=== PATIENT | female | born 1960 | race Caucasian/White ===

== ENCOUNTER 2019-07-17 21:25 | Emergency (ER) | payer OTHER ==
[~2019-07-17] VITALS: Ht 152.4 cm; Wt 50.0 kg
[~2019-07-17 21:25] MED LIST: [UNRECOGNIZED DRUG - OTHER]
[2019-07-17] MEDS ORDERED: ONDANSETRON HCL 4MG/2ML INJ IV STA (22:26)
[2019-07-17] MEDS ORDERED: SODIUM CHLORIDE 0.9% 1,000 ML IV ONE (22:26)
[2019-07-17] MEDS ORDERED: KETOROLAC 30MG/ML VIAL IV STA (22:26)
[2019-07-17 23:35] LABS: CLARITY URINE CLEAR (CLEAR); COLOR URINE YELLOW (YELLOW); KETONES URINE NEGATIVE (NEGATIVE); LEUKOCYTE ESTERASE URINE TRACE (NEGATIVE); NITRITE URINE NEGATIVE (NEGATIVE); OCCULT BLOOD URINE 2+ (NEGATIVE); PH URINE 5.5 (4.5-8.0); PROTEIN URINE NEGATIVE (NEGATIVE); SPECIFIC GRAVITY URINE 1.012 (1.005-1.030); UROBILINOGEN URINE 0.2 E.U./dL (0.2-1.0)
[2019-07-17 23:39] LABS: CHLORIDE 107 mEq/L (98-107)
[2019-07-17 23:40] LABS: BASOPHILS % 0.4 % (0.0-2.0); EOSINOPHILS % 0.2 % (0.0-5.0); HEMATOCRIT. 38.4 % (36.0-48.0); HEMOGLOBIN. 12.9 g/dL (12.0-16.0); LYMPHOCYTES % 8.1 % (20.0-50.0); MEAN CORPUSCULAR HEMOGLOBIN 28.8 pg (28.0-32.0); MEAN CORPUSCULAR VOLUME 85.8 fL (81.0-99.0); MEAN PLATELET VOLUME 9.2 fl (7.4-10.4); MONOCYTES % 4.8 % (2.0-8.0); NEUTROPHILS % 86.5 % (40.0-76.0); PLATELET 253 x1000/uL (130-400); RED BLOOD CELL COUNT 4.47 mill/uL (4.2-5.4); RED CELL DISTRIBUTION WIDTH 13.6 % (11.6-14.6)
[2019-07-18] MEDS ORDERED: MORPHINE SULFATE 4 MG/ML CPJ (NOT FOR IM USE) IV ONE (01:00)
[2019-07-18 01:41] VITALS: BP 143/86
== END 2019-07-18 01:43 | disposition home or self-care (01) ==
LOC: ER 21:25
DX: R10.84 Generalized abdominal pain (principal)
CPT/HCPCS: 36415; 74021; 80053; 81003; 83690; 85025; 96361; 96374; 96375; 99284; J1885; J2270; J2405; J7030

== ENCOUNTER 2020-08-18 18:25 | Inpatient (IN) | payer MEDICAID, OTHER ==
[~2020-08-18] VITALS: Ht 157.5 cm; Wt 59.0 kg
[2020-08-18 19:12] LABS: BASOPHILS % 0.5 % (0.0-2.0); HEMOGLOBIN. 10.2 g/dL (12.0-16.0); LYMPHOCYTES % 14.3 % (20.0-50.0); MEAN CORPUSCULAR HEMOGLOBIN 28.9 pg (28.0-32.0); MEAN CORPUSCULAR VOLUME 84.9 fL (81.0-99.0); MEAN PLATELET VOLUME 8.2 fl (7.4-10.4); MONOCYTES % 6.8 % (2.0-8.0); NEUTROPHILS % 78.4 % (40.0-76.0); PLATELET 299 x1000/uL (130-400); RED BLOOD CELL COUNT 3.54 mill/uL (4.2-5.4); RED CELL DISTRIBUTION WIDTH 13.8 % (11.6-14.6)
[2020-08-18 19:19] LABS: CHLORIDE 99 mEq/L (98-107)
[2020-08-18] MEDS ORDERED: KCL 20MEQ/100ML PREMIX 100 ML IV ONE (19:45)
[2020-08-18] MEDS ORDERED: POTASSIUM BICARB/CIT ACID 25 MEQ TABLET.EFF PO ONE (19:45)
[2020-08-18] MEDS ORDERED: DEXAMETHASONE 10 MG/ML VIAL IV ONE (21:30)
[2020-08-18] MEDS ORDERED: SODIUM CHLORIDE 0.9% 500 ML IV ONE (21:30)
[2020-08-18] MEDS ORDERED: AZITHROMYCIN 500 MG TABLET PO ONE (21:30)
[2020-08-19] MEDS ORDERED: LORAZEPAM 2MG/ML CPJ IV PRN (04:30)
[2020-08-19] MEDS ORDERED: AZITHROMYCIN 500 MG in DEXT 5% WATER 250 ML IV SCH (04:30)
[2020-08-19] MEDS ORDERED: CEFTRIAXONE 1 G PREMIX 50 ML IV SCH (04:30)
[2020-08-19] MEDS ORDERED: MAGNESIUM/ALUMINUM HYDROXIDE/SIMETHICONE 30ML UDC PO PRN (04:30)
[2020-08-19] MEDS ORDERED: DOCUSATE SODIUM 100MG CAPSULE PO PRN (04:30)
[2020-08-19] MEDS ORDERED: CLONIDINE 0.1MG TABLET PO PRN (04:30)
[2020-08-19] MEDS ORDERED: KCL 10MEQ/50ML PREMIX 50 ML IV SCH (05:00)
[2020-08-19] MEDS: ENOXAPARIN 40MG/0.4ML SYR SUBCUT SCH (08:46)
[2020-08-19] MEDS: ACETAMINOPHEN 325MG TABLET PO PRN ×2 (09:53→17:52)
[2020-08-19 10:45] VITALS: BP 110/74
[2020-08-19] MEDS ORDERED: AMLO10TA80 PO (11:46)
[2020-08-19] MEDS ORDERED: FAMO-133 PO (11:46)
[2020-08-19] MEDS ORDERED: ASPI-1406 PO (11:46)
[2020-08-19 12:00] VITALS: BP 106/62
[2020-08-19 15:10] LABS: CHLORIDE 106 mEq/L (98-107)
[2020-08-19 16:00] VITALS: BP 109/62
[2020-08-19 20:00] VITALS: BP 118/67
[2020-08-19] MEDS: ONDANSETRON HCL 4MG/2ML INJ IV PRN (22:30)
[2020-08-19] MEDS: GUAIFENESIN 200MG/10ML SUGAR FREE UDC PO PRN (22:30)
[2020-08-20] VITALS: BP 107/59
[2020-08-20] MEDS: ACETAMINOPHEN 325MG TABLET PO PRN ×2 (00:06→13:11)
[2020-08-20 04:00] VITALS: BP 105/60
[2020-08-20] MEDS: GUAIFENESIN 200MG/10ML SUGAR FREE UDC PO PRN (05:00)
[2020-08-20] MEDS ORDERED: CEFTRIAXONE 1 G PREMIX 50 ML IV SCH (07:00)
[2020-08-20] MEDS: ONDANSETRON HCL 4MG/2ML INJ IV PRN (07:05)
[2020-08-20 08:04] LABS: BASOPHILS % 0.1 % (0.0-2.0); HEMATOCRIT. 27.4 % (36.0-48.0); HEMOGLOBIN. 9.4 g/dL (12.0-16.0); LYMPHOCYTES % 9.4 % (20.0-50.0); MEAN CORPUSCULAR VOLUME 84.8 fL (81.0-99.0); MEAN PLATELET VOLUME 8.5 fl (7.4-10.4); MONOCYTES % 7.1 % (2.0-8.0); NEUTROPHILS % 83.4 % (40.0-76.0); PLATELET 319 x1000/uL (130-400); RED BLOOD CELL COUNT 3.24 mill/uL (4.2-5.4); RED CELL DISTRIBUTION WIDTH 13.9 % (11.6-14.6)
[2020-08-20 08:20] LABS: CHLORIDE 107 mEq/L (98-107)
[2020-08-20] MEDS: AZITHROMYCIN 500 MG in DEXT 5% WATER 250 ML IV SCH (09:11)
[2020-08-20] MEDS: ENOXAPARIN 40MG/0.4ML SYR SUBCUT SCH (09:12)
[2020-08-20 12:00] VITALS: BP 102/62
[2020-08-20] MEDS: DEXAMETHASONE 4MG/ML 1ML VIAL IV SCH (12:16)
[2020-08-20] MEDS: CEFTRIAXONE 1,000 MG in DEXTROSE 5% WATER 50 ML IV SCH (14:30)
[2020-08-20 16:00] VITALS: BP 105/62
[2020-08-20 20:00] VITALS: BP 105/62
[2020-08-21] MEDS: AZITHROMYCIN 500 MG in DEXT 5% WATER 250 ML IV SCH (06:41)
[2020-08-21 08:00] VITALS: BP 104/52
[2020-08-21] MEDS: ENOXAPARIN 40MG/0.4ML SYR SUBCUT SCH (08:13)
[2020-08-21] MEDS: DEXAMETHASONE 4MG/ML 1ML VIAL IV SCH (08:13)
[2020-08-21 12:00] VITALS: BP 116/57
[2020-08-21] MEDS: CEFTRIAXONE 1,000 MG in DEXTROSE 5% WATER 50 ML IV SCH (13:14)
[2020-08-21 16:00] VITALS: BP 110/60
[2020-08-21 20:00] VITALS: BP 120/62
[2020-08-21] MEDS: ACETAMINOPHEN 325MG TABLET PO PRN (23:37)
[2020-08-22] VITALS: BP_SYST 116; BP_SYST 141; BP_DIAS 74; BP_DIAS 78
[2020-08-22 04:00] VITALS: BP 120/63
[2020-08-22 08:00] VITALS: BP 119/62
[2020-08-22] MEDS: ENOXAPARIN 40MG/0.4ML SYR SUBCUT SCH (09:17)
[2020-08-22] MEDS: AZITHROMYCIN 500 MG TABLET PO SCH (09:17)
[2020-08-22] MEDS: DEXAMETHASONE 4MG/ML 1ML VIAL IV SCH (09:17)
[2020-08-22 12:00] VITALS: BP 117/63
[2020-08-22] MEDS: CEFTRIAXONE 1,000 MG in DEXTROSE 5% WATER 50 ML IV SCH (12:47)
[2020-08-22 16:00] VITALS: BP 135/73
[2020-08-22 20:00] VITALS: BP 136/70
[2020-08-22] MEDS: ACETAMINOPHEN 325MG TABLET PO PRN (22:12)
[2020-08-23 00:35] VITALS: BP 121/58
[2020-08-23 05:45] VITALS: BP 128/62
[2020-08-23 08:00] VITALS: BP 121/61
[2020-08-23] MEDS: ENOXAPARIN 40MG/0.4ML SYR SUBCUT SCH (09:46)
[2020-08-23] MEDS: DEXAMETHASONE 4MG/ML 1ML VIAL IV SCH (09:47)
[2020-08-23] MEDS: AZITHROMYCIN 500 MG TABLET PO SCH (09:47)
[2020-08-23 12:00] VITALS: BP 118/62
[2020-08-23] MEDS: CEFTRIAXONE 1,000 MG in DEXTROSE 5% WATER 50 ML IV SCH (12:40)
[2020-08-23 16:00] VITALS: BP 130/71
[2020-08-23 20:00] VITALS: BP 122/66
[2020-08-24] VITALS: BP 135/65
[2020-08-24 04:00] VITALS: BP 124/62
[2020-08-24 08:00] VITALS: BP 122/72
[2020-08-24] MEDS: AZITHROMYCIN 500 MG TABLET PO SCH (09:39)
[2020-08-24] MEDS: ENOXAPARIN 40MG/0.4ML SYR SUBCUT SCH (09:39)
[2020-08-24] MEDS: DEXAMETHASONE 4MG/ML 1ML VIAL IV SCH (09:39)
[2020-08-24 12:00] VITALS: BP 121/64
[2020-08-24] MEDS: CEFTRIAXONE 1,000 MG in DEXTROSE 5% WATER 50 ML IV SCH (12:42)
[2020-08-24] MEDS: ONDANSETRON HCL 4MG/2ML INJ IV PRN (13:50)
[2020-08-24 14:04] VITALS: BP 121/64
== END 2020-08-24 16:00 | disposition home or self-care (01) | DRG 720 ==
LOC: ER 18:25 → 7WST 23:26 → ENRESERV 08-19 09:46
PROVIDERS: ADMIT Hospitalist; ATTEND Hospitalist
DX: A41.89 Other specified sepsis (principal); U07.1 COVID-19; J96.01 Acute respiratory failure with hypoxia; J12.82 Pneumonia due to coronavirus disease 2019; E44.1 Mild protein-calorie malnutrition; E87.6 Hypokalemia; I10 Essential (primary) hypertension; Z86.79 Personal history of other diseases of the circulatory system; Z68.23 Body mass index [BMI] 23.0-23.9, adult; Z79.899 Other long term (current) drug therapy
CPT/HCPCS: 36415; 71045; 80048; 80053; 83735; 84484; 85025; 93005; 99291; J0456; J0696; J1100; J1650; J2405; J3480; J7040; J7060; U0003

== ENCOUNTER 2020-12-04 03:39 | Inpatient (IN) | payer MEDICAID ==
[~2020-12-04] VITALS: Ht 160 cm; Wt 57.2 kg
[2020-12-04] MEDS ORDERED: MORPHINE SULFATE 4 MG/ML CPJ (NOT FOR IM USE) IV STA (03:55)
[2020-12-04] MEDS ORDERED: ONDANSETRON HCL 4MG/2ML INJ IV STA (03:55)
[2020-12-04 04:34] LABS: BASOPHILS % 0.5 % (0.0-2.0); EOSINOPHILS % 2.3 % (0.0-5.0); HEMATOCRIT. 38.8 % (36.0-48.0); HEMOGLOBIN. 12.9 g/dL (12.0-16.0); LYMPHOCYTES % 34.9 % (20.0-50.0); MEAN CORPUSCULAR HEMOGLOBIN 27.3 pg (28.0-32.0); NEUTROPHILS % 54.3 % (40.0-76.0); PLATELET 278 x1000/uL (130-400); RED BLOOD CELL COUNT 4.73 mill/uL (4.2-5.4); RED CELL DISTRIBUTION WIDTH 14.9 % (11.6-14.6)
[2020-12-04 04:42] LABS: CHLORIDE 107 mEq/L (98-107)
[2020-12-04 04:46] LABS: ETHANOL BLOOD < 10 mg/dL
[2020-12-04] MEDS ORDERED: IOHEXOL-350 100 ML BOTTLE ONE (06:36)
[2020-12-04] MEDS ORDERED: HYDROMORPHONE HCL/PF 2MG/ML CPJ IV NR (07:15)
[2020-12-04] MEDS ORDERED: ONDANSETRON HCL 4MG/2ML INJ IV ONE (08:30)
[2020-12-04] MEDS ORDERED: MORPHINE SULFATE 4 MG/ML CPJ (NOT FOR IM USE) IV ONE (08:45)
[2020-12-04 08:58] LABS: CLARITY URINE CLEAR (CLEAR); COLOR URINE YELLOW (YELLOW); KETONES URINE NEGATIVE (NEGATIVE); LEUKOCYTE ESTERASE URINE NEGATIVE (NEGATIVE); NITRITE URINE NEGATIVE (NEGATIVE); OCCULT BLOOD URINE TRACE (NEGATIVE); PROTEIN URINE NEGATIVE (NEGATIVE); SPECIFIC GRAVITY URINE 1.006 (1.005-1.030); UROBILINOGEN URINE 0.2 E.U./dL (0.2-1.0)
[2020-12-04 09:15] LABS: *BARBITURATES SCREEN URINE NEGATIVE (NEGATIVE)
[2020-12-04 09:16] LABS: *AMPHETAMINES SCREEN URINE NEGATIVE (NEGATIVE); *BENZODIAZEPINES SCREEN URINE NEGATIVE (NEGATIVE); *COCAINE SCREEN URINE NEGATIVE (NEGATIVE); METHADONE URINE SCREEN NEGATIVE (NEGATIVE); OPIATES URINE SCREEN NEGATIVE (NEGATIVE); PHENCYCLIDINE URINE SCREEN NEGATIVE (NEGATIVE)
[2020-12-04 09:17] LABS: CANNABINOID URINE SCREEN NEGATIVE (NEGATIVE)
[2020-12-04 13:56] VITALS: BP 133/74
[2020-12-04] MEDS ORDERED: IBUP-2029 PO (15:14)
[2020-12-04] MEDS ORDERED: ASPI-1497 PO (15:14)
[2020-12-04] MEDS ORDERED: FAMO40TA70 PO (15:14)
[2020-12-04] MEDS ORDERED: AMLO10TA4 PO (15:14)
[2020-12-04] MEDS ORDERED: ONDA4TAB5 PO (15:14)
[2020-12-04] MEDS ORDERED: POTA20TA82 PO (15:14)
[2020-12-04 15:15] VITALS: BP 133/74
[2020-12-04] MEDS ORDERED: CLONIDINE 0.1MG TABLET PO PRN (15:15)
[2020-12-04] MEDS ORDERED: ACETAMINOPHEN 325MG TABLET PO PRN (15:15)
[2020-12-04] MEDS ORDERED: KETOROLAC 30MG/ML VIAL IV PRN (15:15)
[2020-12-04] MEDS ORDERED: MAGNESIUM/ALUMINUM HYDROXIDE/SIMETHICONE 30ML UDC PO PRN (15:15)
[2020-12-04] MEDS ORDERED: DOCUSATE SODIUM 100MG CAPSULE PO PRN (15:15)
[2020-12-04] MEDS ORDERED: ONDANSETRON HCL 4MG/2ML INJ IV PRN (15:15)
[2020-12-04 16:00] VITALS: BP 114/63
[2020-12-04] MEDS ORDERED: POTASSIUM CHLORIDE 20MEQ TABLET SR PO SCH (16:00)
[2020-12-04 19:56] VITALS: BP 111/61
[2020-12-05 00:17] VITALS: BP 100/54
[2020-12-05 04:12] VITALS: BP 106/57
[2020-12-05 06:25] LABS: BASOPHILS % 0.5 % (0.0-2.0); HEMATOCRIT. 34.5 % (36.0-48.0); HEMOGLOBIN. 11.3 g/dL (12.0-16.0); LYMPHOCYTES % 38.3 % (20.0-50.0); MEAN CORPUSCULAR HEMOGLOBIN 27.4 pg (28.0-32.0); MEAN CORPUSCULAR VOLUME 83.3 fL (81.0-99.0); MEAN PLATELET VOLUME 9.1 fl (7.4-10.4); MONOCYTES % 8.4 % (2.0-8.0); NEUTROPHILS % 50.8 % (40.0-76.0); PLATELET 254 x1000/uL (130-400); RED BLOOD CELL COUNT 4.14 mill/uL (4.2-5.4); RED CELL DISTRIBUTION WIDTH 15.2 % (11.6-14.6)
[2020-12-05 06:37] LABS: CHLORIDE 109 mEq/L (98-107)
[2020-12-05 08:00] VITALS: BP 104/51
[2020-12-05] MEDS ORDERED: AMLODIPINE 10MG TABLET PO SCH (09:00)
[2020-12-05] MEDS ORDERED: ASPIRIN 81MG EC TABLET PO SCH (09:00)
[2020-12-05 12:00] VITALS: BP 112/59
== END 2020-12-05 16:32 | disposition home or self-care (01) | DRG 54 ==
LOC: ER 03:39 → 6WST 10:47 → ENRESERV 12:49
PROVIDERS: ADMIT Internal Medicine; ATTEND Internal Medicine
DX: G44.209 Tension-type headache, unspecified, not intractable (principal); I10 Essential (primary) hypertension; R11.2 Nausea with vomiting, unspecified; Z87.01 Personal history of pneumonia (recurrent); Z86.16 Personal history of COVID-19; Z86.79 Personal history of other diseases of the circulatory system; Z79.899 Other long term (current) drug therapy; Z79.82 Long term (current) use of aspirin
CPT/HCPCS: 36415; 70496; 80053; 80305; 80320; 81003; 85025; 93005; 93970; 99291; J1170; J1885; J2270; J2405; Q9967; G0480

== ENCOUNTER 2020-12-24 00:45 | Emergency (ER) | payer MEDICAID ==
[~2020-12-24] VITALS: Ht 157.5 cm; Wt 57.0 kg
[~2020-12-24 00:45] MED LIST changes: +AMLO10TA4 PO; +ASPI-1497 PO; +FAMO40TA70 PO; +IBUP-2029 PO; +ONDA4TAB5 PO; +POTA20TA82 PO; -[UNRECOGNIZED DRUG - OTHER]
[2020-12-24 03:25] LABS: BASOPHILS % 0.4 % (0.0-2.0); EOSINOPHILS % 0.8 % (0.0-5.0); HEMATOCRIT. 38.4 % (36.0-48.0); HEMOGLOBIN. 12.8 g/dL (12.0-16.0); LYMPHOCYTES % 27.2 % (20.0-50.0); MEAN CORPUSCULAR HEMOGLOBIN 27.4 pg (28.0-32.0); MEAN CORPUSCULAR VOLUME 82.5 fL (81.0-99.0); MEAN PLATELET VOLUME 8.9 fl (7.4-10.4); MONOCYTES % 6.8 % (2.0-8.0); NEUTROPHILS % 64.8 % (40.0-76.0); PLATELET 279 x1000/uL (130-400); RED BLOOD CELL COUNT 4.65 mill/uL (4.2-5.4); RED CELL DISTRIBUTION WIDTH 15.6 % (11.6-14.6)
[2020-12-24 03:28] LABS: CHLORIDE 106 mEq/L (98-107)
[2020-12-24] MEDS ORDERED: KETOROLAC 30MG/ML VIAL IM ONE (03:45)
[2020-12-24] MEDS ORDERED: ONDANSETRON 4MG ODT PO ONE ×2 (03:45→08:45)
[2020-12-24 06:56] LABS: CLARITY URINE CLEAR (CLEAR); COLOR URINE YELLOW (YELLOW); KETONES URINE NEGATIVE (NEGATIVE); LEUKOCYTE ESTERASE URINE TRACE (NEGATIVE); NITRITE URINE NEGATIVE (NEGATIVE); OCCULT BLOOD URINE 1+ (NEGATIVE); PH URINE 6.5 (4.5-8.0); PROTEIN URINE NEGATIVE (NEGATIVE); UROBILINOGEN URINE 0.2 E.U./dL (0.2-1.0)
[2020-12-24] MEDS ORDERED: HYDROCODONE/ACETAMINOPHEN 5/325MG TABLET PO ONE (07:00)
[2020-12-24] MEDS ORDERED: SULFAMETHOXAZOLE/TRIMETHOPRIM 800/160MG TABLET PO SCH (09:00)
[2020-12-24] MEDS ORDERED: SULF1TAB48 MT (09:02)
[2020-12-24] MEDS ORDERED: ONDA4TAB5 MT (09:02)
[2020-12-24] MEDS ORDERED: KETOROLAC 15MG/ML VIAL IV ONE (09:30)
[2020-12-24] MEDS ORDERED: SODIUM CHLORIDE 0.9% 1,000 ML IV ONE (09:30)
[2020-12-24 10:20] VITALS: BP 146/7
== END 2020-12-24 10:41 | disposition short-term general hospital (02) ==
LOC: ER 00:55
DX: K57.32 Diverticulitis of large intestine without perforation or abscess without bleeding (principal); I10 Essential (primary) hypertension; R11.2 Nausea with vomiting, unspecified; E86.0 Dehydration; Z98.890 Other specified postprocedural states; Z79.899 Other long term (current) drug therapy; Z20.822 Contact with and (suspected) exposure to COVID-19
CPT/HCPCS: 36415; 74176; 76857; 80053; 81003; 81025; 83690; 85025; 87426; 93005; 96361; 96372; 96374; 99285; J1885; Q0162; Z7610

== ENCOUNTER 2020-12-31 18:02 | Emergency (ER) | payer MEDICAID ==
[~2020-12-31] VITALS: Ht 157.5 cm; Wt 50.0 kg
[~2020-12-31 18:02] MED LIST changes: +ONDA4TAB5 MT; +SULF1TAB48 MT
[2020-12-31 19:38] LABS: BASOPHILS % 0.5 % (0.0-2.0); EOSINOPHILS % 0.5 % (0.0-5.0); HEMATOCRIT. 39.7 % (36.0-48.0); HEMOGLOBIN. 13.3 g/dL (12.0-16.0); LYMPHOCYTES % 26.3 % (20.0-50.0); MEAN CORPUSCULAR HEMOGLOBIN 27.6 pg (28.0-32.0); MEAN CORPUSCULAR VOLUME 82.5 fL (81.0-99.0); MEAN PLATELET VOLUME 9.1 fl (7.4-10.4); MONOCYTES % 5.6 % (2.0-8.0); NEUTROPHILS % 67.1 % (40.0-76.0); PLATELET 299 x1000/uL (130-400); RED BLOOD CELL COUNT 4.82 mill/uL (4.2-5.4); RED CELL DISTRIBUTION WIDTH 15.5 % (11.6-14.6)
[2020-12-31 19:44] LABS: CHLORIDE 107 mEq/L (98-107)
[2020-12-31] MEDS ORDERED: ONDANSETRON 4MG ODT PO ONE (21:15)
[2020-12-31 21:44] LABS: CLARITY URINE CLEAR (CLEAR); COLOR URINE YELLOW (YELLOW); KETONES URINE 1+ (NEGATIVE); LEUKOCYTE ESTERASE URINE NEGATIVE (NEGATIVE); NITRITE URINE NEGATIVE (NEGATIVE); OCCULT BLOOD URINE TRACE (NEGATIVE); PROTEIN URINE NEGATIVE (NEGATIVE); SPECIFIC GRAVITY URINE 1.005 (1.005-1.030); UROBILINOGEN URINE 0.2 E.U./dL (0.2-1.0)
[2020-12-31 22:50] VITALS: BP 141/74
[2020-12-31] MEDS ORDERED: ONDA4TAB5 MT (22:55)
== END 2020-12-31 23:41 | disposition home or self-care (01) ==
LOC: ER 18:02
DX: M79.18 Myalgia, other site (principal); R00.0 Tachycardia, unspecified; F41.9 Anxiety disorder, unspecified; Z86.79 Personal history of other diseases of the circulatory system; Z98.890 Other specified postprocedural states; Z87.19 Personal history of other diseases of the digestive system
CPT/HCPCS: 36415; 80048; 81003; 82962; 84484; 85025; 93005; 99284; Q0162; Z7610

== ENCOUNTER 2021-01-20 21:16 | Emergency (ER) | payer MEDICAID ==
[~2021-01-20] VITALS: Ht 157.5 cm; Wt 53.1 kg
[2021-01-20] MEDS ORDERED: ONDANSETRON HCL 4MG/2ML INJ IV STA (22:33)
[2021-01-20] MEDS ORDERED: MORPHINE SULFATE 4 MG/ML CPJ (NOT FOR IM USE) IV STA (22:33)
[2021-01-20] MEDS ORDERED: SODIUM CHLORIDE 0.9% 1,000 ML IV ONE (22:45)
[2021-01-20 23:02] LABS: CLARITY URINE CLEAR (CLEAR); COLOR URINE YELLOW (YELLOW); KETONES URINE 1+ (NEGATIVE); LEUKOCYTE ESTERASE URINE TRACE (NEGATIVE); NITRITE URINE NEGATIVE (NEGATIVE); OCCULT BLOOD URINE 1+ (NEGATIVE); PH URINE 5.5 (4.5-8.0); PROTEIN URINE NEGATIVE (NEGATIVE); SPECIFIC GRAVITY URINE 1.012 (1.005-1.030); UROBILINOGEN URINE 0.2 E.U./dL (0.2-1.0)
[2021-01-20] MEDS ORDERED: METRONIDAZOLE 500 MG PREMIX 100 ML IV ONE (23:15)
[2021-01-20] MEDS ORDERED: CEFTRIAXONE 1 G PREMIX 50 ML IV ONE (23:15)
[2021-01-20 23:45] LABS: BASOPHILS % 0.7 % (0.0-2.0); EOSINOPHILS % 0.8 % (0.0-5.0); HEMATOCRIT. 35.2 % (36.0-48.0); LYMPHOCYTES % 28.5 % (20.0-50.0); MEAN CORPUSCULAR VOLUME 82.4 fL (81.0-99.0); MEAN PLATELET VOLUME 8.9 fl (7.4-10.4); MONOCYTES % 7.2 % (2.0-8.0); NEUTROPHILS % 62.8 % (40.0-76.0); PLATELET 252 x1000/uL (130-400); RED BLOOD CELL COUNT 4.27 mill/uL (4.2-5.4)
[2021-01-20 23:50] LABS: CHLORIDE 110 mEq/L (98-107)
[2021-01-20 23:52] LABS: INR 1.1; PROTHROMBIN TIME 11.4 sec (9.6-11.0)
[2021-01-21 01:50] VITALS: BP 136/73
[2021-01-30] MEDS ORDERED: LEVO750T46 MT (20:55)
[2021-01-30] MEDS ORDERED: METR500T MT (20:56)
[2021-01-30] MEDS ORDERED: IBUP-2029 MT (20:56)
[2021-01-30] MEDS ORDERED: ONDA4TAB5 MT (21:01)
== END 2021-01-21 02:11 | disposition left against medical advice (07) ==
LOC: ER 21:52
DX: K57.92 Diverticulitis of intestine, part unspecified, without perforation or abscess without bleeding (principal); I10 Essential (primary) hypertension
CPT/HCPCS: 36415; 80053; 81003; 83605; 83690; 85025; 85610; 93005; 96361; 96365; 96368; 96375; 99284; J0696; J2270; J2405; J3490; J7030

== ENCOUNTER 2021-01-22 23:09 | Emergency (ER) | payer MEDICAID ==
[~2021-01-22] VITALS: Ht 157.5 cm; Wt 50.0 kg
[2021-01-22] MEDS ORDERED: ASPIRIN 81MG TABLET PO ONE (23:45)
[2021-01-23 00:10] LABS: BASOPHILS % 0.8 % (0.0-2.0); EOSINOPHILS % 0.9 % (0.0-5.0); HEMATOCRIT. 36.4 % (36.0-48.0); HEMOGLOBIN. 12.6 g/dL (12.0-16.0); LYMPHOCYTES % 26.7 % (20.0-50.0); MEAN CORPUSCULAR HEMOGLOBIN 28.4 pg (28.0-32.0); MONOCYTES % 6.6 % (2.0-8.0); PLATELET 256 x1000/uL (130-400); RED BLOOD CELL COUNT 4.43 mill/uL (4.2-5.4); RED CELL DISTRIBUTION WIDTH 15.5 % (11.6-14.6)
[2021-01-23 00:13] LABS: CHLORIDE 105 mEq/L (98-107)
[2021-01-23] MEDS ORDERED: MORPHINE SULFATE 4 MG/ML CPJ (NOT FOR IM USE) IV NR (02:30)
[2021-01-23] MEDS ORDERED: POTASSIUM CHLORIDE 20MEQ TABLET SR PO SCH (03:45)
[2021-01-23 05:56] VITALS: BP 124/64
[2021-01-30] MEDS ORDERED: LEVO750T46 MT (20:55)
[2021-01-30] MEDS ORDERED: IBUP-2029 MT (20:56)
[2021-01-30] MEDS ORDERED: METR500T MT (20:56)
[2021-01-30] MEDS ORDERED: ONDA4TAB5 MT (21:01)
== END 2021-01-23 05:55 | disposition home or self-care (01) ==
LOC: ER 23:26
DX: R10.9 Unspecified abdominal pain (principal); I10 Essential (primary) hypertension; Z88.0 Allergy status to penicillin; Z88.1 Allergy status to other antibiotic agents; Z79.899 Other long term (current) drug therapy; Z79.82 Long term (current) use of aspirin; Z98.890 Other specified postprocedural states
CPT/HCPCS: 36415; 71045; 80053; 83880; 84484; 85025; 93005; 96374; 99285; J2270; Z7610

== ENCOUNTER 2021-05-01 18:12 | Emergency (ER) | payer MEDICAID ==
[~2021-05-01] VITALS: Ht 157.5 cm; Wt 46.0 kg
[~2021-05-01 18:12] MED LIST changes: +IBUP-2029 MT; +LEVO750T46 MT; +METR500T MT
[2021-05-02] MEDS ORDERED: LACTATED RINGERS 1,000 ML IV SCH
[2021-05-02 00:01] LABS: BASOPHILS % 0.7 % (0.0-2.0); EOSINOPHILS % 0.7 % (0.0-5.0); HEMATOCRIT. 35.3 % (36.0-48.0); HEMOGLOBIN. 11.6 g/dL (12.0-16.0); LYMPHOCYTES % 36.1 % (20.0-50.0); MEAN CORPUSCULAR HEMOGLOBIN 27.3 pg (28.0-32.0); MEAN CORPUSCULAR VOLUME 83.5 fL (81.0-99.0); MONOCYTES % 5.3 % (2.0-8.0); NEUTROPHILS % 57.2 % (40.0-76.0); PLATELET 282 x1000/uL (130-400); RED BLOOD CELL COUNT 4.23 mill/uL (4.2-5.4); RED CELL DISTRIBUTION WIDTH 14.5 % (11.6-14.6)
[2021-05-02 00:10] LABS: CHLORIDE 108 mEq/L (98-107)
[2021-05-02 00:18] LABS: CLARITY URINE CLEAR (CLEAR); COLOR URINE YELLOW (YELLOW); KETONES URINE TRACE (NEGATIVE); LEUKOCYTE ESTERASE URINE 1+ (NEGATIVE); NITRITE URINE NEGATIVE (NEGATIVE); OCCULT BLOOD URINE 1+ (NEGATIVE); PROTEIN URINE NEGATIVE (NEGATIVE); SPECIFIC GRAVITY URINE 1.019 (1.005-1.030); UROBILINOGEN URINE 0.2 E.U./dL (0.2-1.0)
[2021-05-02] MEDS ORDERED: KETOROLAC 15MG/ML VIAL IV ONE (01:30)
[2021-05-02] MEDS ORDERED: ACETAMINOPHEN 325MG TABLET PO ONE (01:30)
[2021-05-02] MEDS ORDERED: ONDANSETRON HCL 4MG/2ML INJ IV ONE (02:00)
[2021-05-02 02:05] VITALS: BP 139/81
[2021-05-14] MEDS ORDERED: ASPI-1497 PO (14:40)
[2021-05-14] MEDS ORDERED: LEVO500T89 MT (14:40)
[2021-05-14] MEDS ORDERED: LIP40 MT (15:03)
== END 2021-05-02 02:55 | disposition home or self-care (01) ==
LOC: ER 18:12
DX: S09.8XXA Other specified injuries of head, initial encounter (principal); W22.8XXA Striking against or struck by other objects, initial encounter; I10 Essential (primary) hypertension; Z20.822 Contact with and (suspected) exposure to COVID-19; Y93.89 Activity, other specified; Y92.018 Other place in single-family (private) house as the place of occurrence of the external cause; Z86.79 Personal history of other diseases of the circulatory system; Z79.899 Other long term (current) drug therapy
CPT/HCPCS: 36415; 70450; 80053; 81003; 85025; 93005; 96361; 96374; 96375; 99284; C9803; J1885; J2405; U0003; U0005

== ENCOUNTER 2021-05-21 15:08 | Emergency (ER) | payer MEDICAID ==
[~2021-05-21] VITALS: Ht 157.5 cm; Wt 49.0 kg
[~2021-05-21 15:08] MED LIST changes: -FAMO40TA70 PO; -IBUP-2029 MT; -IBUP-2029 PO; +LEVO500T89 MT; -LEVO750T46 MT; +LIP40 MT; -ONDA4TAB5 MT; -SULF1TAB48 MT
[2021-05-21 18:23] LABS: BASOPHILS % 1.2 % (0.0-2.0); EOSINOPHILS % 0.7 % (0.0-5.0); HEMATOCRIT. 34.8 % (36.0-48.0); HEMOGLOBIN. 11.6 g/dL (12.0-16.0); LYMPHOCYTES % 26.4 % (20.0-50.0); MEAN CORPUSCULAR HEMOGLOBIN 27.7 pg (28.0-32.0); MEAN CORPUSCULAR VOLUME 83.2 fL (81.0-99.0); MEAN PLATELET VOLUME 8.9 fl (7.4-10.4); MONOCYTES % 9.5 % (2.0-8.0); NEUTROPHILS % 62.2 % (40.0-76.0); PLATELET 249 x1000/uL (130-400); RED BLOOD CELL COUNT 4.18 mill/uL (4.2-5.4); RED CELL DISTRIBUTION WIDTH 15.7 % (11.6-14.6)
[2021-05-21 18:28] LABS: CHLORIDE 106 mEq/L (98-107)
[2021-05-21] MEDS ORDERED: ACETAMINOPHEN 500MG TABLET PO NR (21:00)
[2021-05-21 21:55] LABS: CLARITY URINE CLEAR (CLEAR); COLOR URINE YELLOW (YELLOW); KETONES URINE NEGATIVE (NEGATIVE); LEUKOCYTE ESTERASE URINE NEGATIVE (NEGATIVE); NITRITE URINE NEGATIVE (NEGATIVE); OCCULT BLOOD URINE 2+ (NEGATIVE); PH URINE 5.5 (4.5-8.0); PROTEIN URINE NEGATIVE (NEGATIVE); SPECIFIC GRAVITY URINE 1.013 (1.005-1.030); UROBILINOGEN URINE 0.2 E.U./dL (0.2-1.0)
[2021-05-21] MEDS ORDERED: ACET650T37 MT (22:25)
[2021-05-21] MEDS ORDERED: SODIUM CHLORIDE 0.9% 1,000 ML IV ONE (23:15)
[2021-05-21] MEDS ORDERED: PROCHLORPERAZINE 10MG/2ML VIAL IV PRN (23:15)
[2021-05-21] MEDS ORDERED: BENZ-16 MT (23:38)
[2021-05-21] MEDS ORDERED: HYDROCODONE/ACETAMINOPHEN 10/325MG TABLET PO NR (23:45)
[2021-05-22 00:21] VITALS: BP 124/76
== END 2021-05-22 00:22 | disposition home or self-care (01) ==
LOC: ER 15:08
DX: J06.9 Acute upper respiratory infection, unspecified (principal); Z20.822 Contact with and (suspected) exposure to COVID-19; Z91.041 Radiographic dye allergy status; Z91.013 Allergy to seafood; Z88.0 Allergy status to penicillin; Z88.1 Allergy status to other antibiotic agents; Z88.8 Allergy status to other drugs, medicaments and biological substances; Z79.82 Long term (current) use of aspirin; Z79.899 Other long term (current) drug therapy
CPT/HCPCS: 36415; 71045; 80053; 81003; 83880; 84484; 85025; 93005; 99285; C9803; J7030; U0003; U0005

== ENCOUNTER 2021-05-25 18:16 | Emergency (ER) | payer MEDICAID ==
[~2021-05-25] VITALS: Ht 157.5 cm; Wt 46.2 kg
[~2021-05-25 18:16] MED LIST changes: +ACET650T37 MT; +BENZ-16 MT
[2021-05-25] MEDS ORDERED: METOCLOPRAMIDE HCL 10MG/2ML VIAL IV ONE (19:15)
[2021-05-25 21:25] VITALS: BP 132/88
== END 2021-05-25 22:44 | disposition home or self-care (01) ==
LOC: ER 18:16
DX: R51.9 Headache, unspecified (principal); I10 Essential (primary) hypertension; E78.00 Pure hypercholesterolemia, unspecified; E11.9 Type 2 diabetes mellitus without complications; Z88.0 Allergy status to penicillin; Z88.8 Allergy status to other drugs, medicaments and biological substances; Z88.3 Allergy status to other anti-infective agents; Z91.041 Radiographic dye allergy status; Z91.013 Allergy to seafood
CPT/HCPCS: 70450; 96374; 99284; J2765

== ENCOUNTER 2021-05-29 15:58 | Emergency (ER) | payer MEDICAID ==
[~2021-05-29] VITALS: Ht 157.5 cm; Wt 45.0 kg
[2021-05-29 21:00] LABS: BASOPHILS % 0.9 % (0.0-2.0); EOSINOPHILS % 1.1 % (0.0-5.0); HEMATOCRIT. 34.1 % (36.0-48.0); HEMOGLOBIN. 11.4 g/dL (12.0-16.0); MEAN CORPUSCULAR HEMOGLOBIN 27.8 pg (28.0-32.0); MEAN CORPUSCULAR VOLUME 83.5 fL (81.0-99.0); MEAN PLATELET VOLUME 8.3 fl (7.4-10.4); MONOCYTES % 7.5 % (2.0-8.0); NEUTROPHILS % 52.5 % (40.0-76.0); PLATELET 270 x1000/uL (130-400); RED BLOOD CELL COUNT 4.09 mill/uL (4.2-5.4); RED CELL DISTRIBUTION WIDTH 15.9 % (11.6-14.6)
[2021-05-29 21:02] LABS: CLARITY URINE CLEAR (CLEAR); COLOR URINE YELLOW (YELLOW); KETONES URINE TRACE (NEGATIVE); LEUKOCYTE ESTERASE URINE TRACE (NEGATIVE); NITRITE URINE NEGATIVE (NEGATIVE); OCCULT BLOOD URINE 1+ (NEGATIVE); PH URINE 5.5 (4.5-8.0); PROTEIN URINE NEGATIVE (NEGATIVE); UROBILINOGEN URINE 0.2 E.U./dL (0.2-1.0)
[2021-05-29 21:06] LABS: CHLORIDE 107 mEq/L (98-107)
[2021-05-29] MEDS ORDERED: CIPR-263 MT (22:31)
[2021-05-29] MEDS ORDERED: KETOROLAC 15MG/ML VIAL IM ONE (23:15)
[2021-05-29 23:30] VITALS: BP 70/60
== END 2021-05-29 23:48 | disposition home or self-care (01) ==
LOC: ER 15:58
DX: K52.9 Noninfective gastroenteritis and colitis, unspecified (principal); K59.00 Constipation, unspecified; R10.30 Lower abdominal pain, unspecified; E11.9 Type 2 diabetes mellitus without complications; E78.00 Pure hypercholesterolemia, unspecified; I10 Essential (primary) hypertension; Z79.899 Other long term (current) drug therapy
CPT/HCPCS: 36415; 74176; 80053; 81003; 81025; 85025; 96372; 99284; J1885

== ENCOUNTER 2021-06-02 02:40 | Emergency (ER) | payer MEDICAID ==
[~2021-06-02] VITALS: Ht 157.5 cm; Wt 46.0 kg
[~2021-06-02 02:40] MED LIST changes: +CIPR-263 MT
[2021-06-02] MEDS ORDERED: MORPHINE SULFATE 4 MG/ML CPJ (NOT FOR IM USE) IV STA (04:40)
[2021-06-02] MEDS ORDERED: ONDANSETRON HCL 4MG/2ML INJ IV STA (04:40)
[2021-06-02 05:20] LABS: BASOPHILS % 0.4 % (0.0-2.0); EOSINOPHILS % 1.3 % (0.0-5.0); HEMATOCRIT. 37.8 % (36.0-48.0); LYMPHOCYTES % 27.1 % (20.0-50.0); MEAN CORPUSCULAR VOLUME 84.3 fL (81.0-99.0); MEAN PLATELET VOLUME 8.9 fl (7.4-10.4); MONOCYTES % 8.2 % (2.0-8.0); PLATELET 275 x1000/uL (130-400); RED BLOOD CELL COUNT 4.48 mill/uL (4.2-5.4)
[2021-06-02 05:21] LABS: CLARITY URINE CLEAR (CLEAR); COLOR URINE DARK YELLOW (YELLOW); KETONES URINE TRACE (NEGATIVE); LEUKOCYTE ESTERASE URINE 2+ (NEGATIVE); NITRITE URINE NEGATIVE (NEGATIVE); OCCULT BLOOD URINE NEGATIVE (NEGATIVE); PROTEIN URINE TRACE (NEGATIVE); SPECIFIC GRAVITY URINE 1.026 (1.005-1.030)
[2021-06-02 05:28] LABS: CHLORIDE 108 mEq/L (98-107)
[2021-06-02 05:45] LABS: PROTHROMBIN TIME 10.6 sec (9.6-11.0)
[2021-06-02] MEDS ORDERED: MORPHINE SULFATE 2 MG/ML CPJ (NOT FOR IM USE) IV STA (06:22)
[2021-06-02] MEDS ORDERED: KETOROLAC 30MG/ML VIAL IV ONE (07:00)
[2021-06-02] MEDS ORDERED: TOPUD PO (07:22)
[2021-06-02] MEDS ORDERED: ONDA4TAB5 PO (07:22)
[2021-06-02 08:25] VITALS: BP 124/68
== END 2021-06-02 08:28 | disposition home or self-care (01) ==
LOC: ER 02:40
DX: R10.13 Epigastric pain (principal); K59.00 Constipation, unspecified; R19.7 Diarrhea, unspecified; I10 Essential (primary) hypertension; Z98.890 Other specified postprocedural states; Z79.899 Other long term (current) drug therapy; Z88.0 Allergy status to penicillin; Z88.5 Allergy status to narcotic agent
CPT/HCPCS: 36415; 74176; 80053; 81003; 83605; 83690; 85025; 85610; 96374; 96375; 99284; J1885; J2270; J2405

== ENCOUNTER 2021-06-06 14:56 | Emergency (ER) | payer MEDICAID ==
[~2021-06-06] VITALS: Ht 152.4 cm; Wt 65.0 kg
[~2021-06-06 14:56] MED LIST changes: +TOPUD PO
[2021-06-06] MEDS ORDERED: MAGNESIUM/ALUMINUM HYDROXIDE/SIMETHICONE 30ML UDC PO STA (18:14)
[2021-06-06 18:22] LABS: CLARITY URINE CLEAR (CLEAR); COLOR URINE YELLOW (YELLOW); KETONES URINE NEGATIVE (NEGATIVE); LEUKOCYTE ESTERASE URINE NEGATIVE (NEGATIVE); NITRITE URINE NEGATIVE (NEGATIVE); OCCULT BLOOD URINE TRACE (NEGATIVE); PH URINE 5.5 (4.5-8.0); PROTEIN URINE NEGATIVE (NEGATIVE); SPECIFIC GRAVITY URINE 1.008 (1.005-1.030); UROBILINOGEN URINE 0.2 E.U./dL (0.2-1.0)
[2021-06-06] MEDS: VISCOUS LIDOCAINE 2% 15 ML UDC PO STA ×2 (18:39→18:42)
[2021-06-06 18:52] LABS: BASOPHILS % 0.7 % (0.0-2.0); EOSINOPHILS % 0.5 % (0.0-5.0); HEMATOCRIT. 34.9 % (36.0-48.0); HEMOGLOBIN. 11.5 g/dL (12.0-16.0); LYMPHOCYTES % 25.2 % (20.0-50.0); MEAN CORPUSCULAR HEMOGLOBIN 27.8 pg (28.0-32.0); MEAN CORPUSCULAR VOLUME 84.4 fL (81.0-99.0); MEAN PLATELET VOLUME 9.1 fl (7.4-10.4); MONOCYTES % 5.1 % (2.0-8.0); NEUTROPHILS % 68.5 % (40.0-76.0); PLATELET 270 x1000/uL (130-400); RED BLOOD CELL COUNT 4.14 mill/uL (4.2-5.4); RED CELL DISTRIBUTION WIDTH 16.4 % (11.6-14.6)
[2021-06-06 18:58] LABS: CHLORIDE 106 mEq/L (98-107)
[2021-06-06] MEDS ORDERED: ACETAMINOPHEN 325MG TABLET PO ONE (19:15)
[2021-06-06] MEDS ORDERED: TOPUD MT (19:32)
[2021-06-06] MEDS ORDERED: MAGN296S70 MT (19:32)
[2021-06-06 19:48] VITALS: BP 138/65
== END 2021-06-06 19:50 | disposition home or self-care (01) ==
LOC: ER 14:56
DX: K59.00 Constipation, unspecified (principal); R10.84 Generalized abdominal pain; R11.0 Nausea; I10 Essential (primary) hypertension; Z88.8 Allergy status to other drugs, medicaments and biological substances; Z88.1 Allergy status to other antibiotic agents; Z91.041 Radiographic dye allergy status; Z91.013 Allergy to seafood
CPT/HCPCS: 36415; 74018; 80053; 81003; 85025; 99284

== ENCOUNTER 2021-06-18 14:48 | Emergency (ER) | payer MEDICAID ==
[~2021-06-18] VITALS: Ht 154.9 cm; Wt 54.0 kg
[~2021-06-18 14:48] MED LIST changes: +MAGN296S70 MT; +TOPUD MT
[2021-06-18] MEDS ORDERED: IBUPROFEN 600MG TABLET PO STA (16:19)
[2021-06-18 16:50] LABS: BASOPHILS % 0.7 % (0.0-2.0); EOSINOPHILS % 0.9 % (0.0-5.0); HEMATOCRIT. 35.5 % (36.0-48.0); HEMOGLOBIN. 11.8 g/dL (12.0-16.0); LYMPHOCYTES % 29.9 % (20.0-50.0); MEAN CORPUSCULAR VOLUME 84.2 fL (81.0-99.0); MEAN PLATELET VOLUME 8.7 fl (7.4-10.4); MONOCYTES % 8.9 % (2.0-8.0); NEUTROPHILS % 59.6 % (40.0-76.0); PLATELET 231 x1000/uL (130-400); RED BLOOD CELL COUNT 4.21 mill/uL (4.2-5.4); RED CELL DISTRIBUTION WIDTH 16.8 % (11.6-14.6)
[2021-06-18 16:58] LABS: CHLORIDE 109 mEq/L (98-107)
[2021-06-18 18:31] VITALS: BP 128/76
== END 2021-06-18 20:10 | disposition home or self-care (01) ==
LOC: ER 14:48
DX: R07.89 Other chest pain (principal); R10.9 Unspecified abdominal pain; R51.9 Headache, unspecified; I10 Essential (primary) hypertension; Z98.890 Other specified postprocedural states
CPT/HCPCS: 36415; 71045; 80053; 85025; 93005; 99285

== ENCOUNTER 2021-07-07 14:02 | Emergency (ER) | payer MEDICAID ==
[~2021-07-07] VITALS: Ht 154.9 cm; Wt 57.0 kg
[2021-07-07] MEDS ORDERED: MORPHINE SULFATE 2 MG/ML CPJ (NOT FOR IM USE) IV ONE (15:45)
[2021-07-07] MEDS ORDERED: ACETAMINOPHEN 325MG TABLET PO ONE (15:45)
[2021-07-07 16:47] LABS: BASOPHILS % 0.6 % (0.0-2.0); EOSINOPHILS % 0.4 % (0.0-5.0); HEMATOCRIT. 35.4 % (36.0-48.0); HEMOGLOBIN. 11.5 g/dL (12.0-16.0); LYMPHOCYTES % 17.6 % (20.0-50.0); MEAN CORPUSCULAR HEMOGLOBIN 27.6 pg (28.0-32.0); MEAN CORPUSCULAR VOLUME 84.9 fL (81.0-99.0); MONOCYTES % 4.2 % (2.0-8.0); NEUTROPHILS % 77.2 % (40.0-76.0); PLATELET 225 x1000/uL (130-400); RED BLOOD CELL COUNT 4.16 mill/uL (4.2-5.4); RED CELL DISTRIBUTION WIDTH 17.1 % (11.6-14.6)
[2021-07-07 16:51] LABS: CHLORIDE 108 mEq/L (98-107)
[2021-07-07 16:56] LABS: ETHANOL BLOOD < 10 mg/dL
[2021-07-07] MEDS ORDERED: ONDANSETRON HCL 4MG/2ML INJ IV NR (18:45)
[2021-07-07] MEDS ORDERED: ACET-2708 MT (20:22)
[2021-07-07 22:17] VITALS: BP 128/76
== END 2021-07-07 22:19 | disposition home or self-care (01) ==
LOC: ER 14:02
DX: R51.9 Headache, unspecified (principal); F41.9 Anxiety disorder, unspecified; R07.89 Other chest pain; I10 Essential (primary) hypertension; E11.9 Type 2 diabetes mellitus without complications; E78.00 Pure hypercholesterolemia, unspecified; Z91.041 Radiographic dye allergy status; Z88.0 Allergy status to penicillin; Z88.1 Allergy status to other antibiotic agents; Z88.8 Allergy status to other drugs, medicaments and biological substances; Z79.899 Other long term (current) drug therapy; Z98.890 Other specified postprocedural states
CPT/HCPCS: 36415; 70450; 71045; 80053; 80320; 83880; 84484; 85025; 93005; 96374; 96375; 99285; J2270; Z7610; G0480

== ENCOUNTER 2021-07-21 01:33 | Emergency (ER) | payer MEDICAID ==
[~2021-07-21] VITALS: Ht 157.5 cm; Wt 44.1 kg
[~2021-07-21 01:33] MED LIST changes: +ACET-2708 MT
[2021-07-21] MEDS ORDERED: ONDANSETRON HCL 4MG/2ML INJ IV STA (01:50)
[2021-07-21] MEDS ORDERED: MORPHINE SULFATE 4 MG/ML CPJ (NOT FOR IM USE) IV STA (01:50)
[2021-07-21] MEDS ORDERED: SODIUM CHLORIDE 0.9% 1,000 ML IV ONE (02:00)
[2021-07-21 02:44] LABS: BASOPHILS % 0.6 % (0.0-2.0); EOSINOPHILS % 1.2 % (0.0-5.0); HEMATOCRIT. 38.5 % (36.0-48.0); HEMOGLOBIN. 12.6 g/dL (12.0-16.0); LYMPHOCYTES % 40.2 % (20.0-50.0); MEAN CORPUSCULAR HEMOGLOBIN 28.2 pg (28.0-32.0); MEAN CORPUSCULAR VOLUME 86.5 fL (81.0-99.0); MONOCYTES % 6.8 % (2.0-8.0); NEUTROPHILS % 51.2 % (40.0-76.0); PLATELET 218 x1000/uL (130-400); RED BLOOD CELL COUNT 4.45 mill/uL (4.2-5.4); RED CELL DISTRIBUTION WIDTH 16.8 % (11.6-14.6)
[2021-07-21] MEDS ORDERED: KETOROLAC 15MG/ML VIAL IV ONE (03:00)
[2021-07-21] MEDS ORDERED: KETOROLAC 30MG/ML VIAL IV NR (03:00)
[2021-07-21 03:01] LABS: CHLORIDE 107 mEq/L (98-107)
[2021-07-21 03:18] LABS: CLARITY URINE CLEAR (CLEAR); COLOR URINE YELLOW (YELLOW); KETONES URINE NEGATIVE (NEGATIVE); LEUKOCYTE ESTERASE URINE 1+ (NEGATIVE); NITRITE URINE NEGATIVE (NEGATIVE); OCCULT BLOOD URINE TRACE (NEGATIVE); PH URINE 6.5 (4.5-8.0); PROTEIN URINE NEGATIVE (NEGATIVE); SPECIFIC GRAVITY URINE 1.007 (1.005-1.030); UROBILINOGEN URINE 0.2 E.U./dL (0.2-1.0)
[2021-07-21 05:30] VITALS: BP 137/68
== END 2021-07-21 05:34 | disposition home or self-care (01) ==
LOC: ER 01:33
DX: B34.9 Viral infection, unspecified (principal); E78.00 Pure hypercholesterolemia, unspecified; E11.9 Type 2 diabetes mellitus without complications; Z20.822 Contact with and (suspected) exposure to COVID-19; Z91.041 Radiographic dye allergy status; Z88.0 Allergy status to penicillin; Z88.1 Allergy status to other antibiotic agents; Z88.8 Allergy status to other drugs, medicaments and biological substances; Z79.899 Other long term (current) drug therapy
CPT/HCPCS: 36415; 71045; 80053; 81003; 83690; 85025; 87426; 87804; 93005; 96361; 96374; 96375; 99285; J1885; J2405; J7030; J2270

== ENCOUNTER 2021-07-23 22:32 | Emergency (ER) | payer MEDICAID ==
[~2021-07-23] VITALS: Ht 157.5 cm; Wt 50.0 kg
[2021-07-23] MEDS ORDERED: ONDANSETRON HCL 4MG/2ML INJ IM STA (23:09)
[2021-07-23] MEDS ORDERED: ACETAMINOPHEN 325MG TABLET PO STA (23:09)
[2021-07-23] MEDS ORDERED: IBUPROFEN 600MG TABLET PO ONE (23:30)
[2021-07-24 00:55] VITALS: BP 142/76
== END 2021-07-24 02:46 | disposition left against medical advice (07) ==
LOC: ER 22:32
DX: S06.0X0A Concussion without loss of consciousness, initial encounter (principal); I10 Essential (primary) hypertension; Z98.890 Other specified postprocedural states; Z79.899 Other long term (current) drug therapy; Z88.0 Allergy status to penicillin; W22.8XXA Striking against or struck by other objects, initial encounter; Y93.89 Activity, other specified; Y92.89 Other specified places as the place of occurrence of the external cause; Y99.8 Other external cause status
CPT/HCPCS: 70450; 96372; 99284; J2405

== ENCOUNTER 2021-08-10 02:52 | Emergency (ER) | payer MEDICAID ==
[~2021-08-10] VITALS: Ht 157.5 cm; Wt 44.5 kg
[2021-08-10 03:15] VITALS: BP 157/86
[2021-08-10] MEDS ORDERED: KETOROLAC 30MG/ML VIAL IM STA (03:21)
[2021-08-10 03:46] LABS: BASOPHILS % 0.7 % (0.0-2.0); EOSINOPHILS % 1.8 % (0.0-5.0); HEMATOCRIT. 36.7 % (36.0-48.0); HEMOGLOBIN. 12.1 g/dL (12.0-16.0); MEAN CORPUSCULAR VOLUME 87.6 fL (81.0-99.0); MEAN PLATELET VOLUME 8.8 fl (7.4-10.4); MONOCYTES % 6.6 % (2.0-8.0); NEUTROPHILS % 53.9 % (40.0-76.0); PLATELET 248 x1000/uL (130-400); RED BLOOD CELL COUNT 4.19 mill/uL (4.2-5.4); RED CELL DISTRIBUTION WIDTH 15.9 % (11.6-14.6)
[2021-08-10 03:48] LABS: CLARITY URINE CLEAR (CLEAR); COLOR URINE YELLOW (YELLOW); KETONES URINE NEGATIVE (NEGATIVE); LEUKOCYTE ESTERASE URINE 2+ (NEGATIVE); NITRITE URINE NEGATIVE (NEGATIVE); OCCULT BLOOD URINE TRACE (NEGATIVE); PH URINE 6.5 (4.5-8.0); PROTEIN URINE NEGATIVE (NEGATIVE); SPECIFIC GRAVITY URINE 1.009 (1.005-1.030); UROBILINOGEN URINE 0.2 E.U./dL (0.2-1.0)
[2021-08-10 03:52] LABS: CHLORIDE 106 mEq/L (98-107)
[2021-08-10] MEDS ORDERED: ONDANSETRON 4MG ODT PO ONE (04:00)
[2021-08-10] MEDS ORDERED: IBUP-2029 MT (05:55)
[2021-08-10] MEDS ORDERED: ONDA4TAB5 PO (05:55)
== END 2021-08-10 06:15 | disposition home or self-care (01) ==
LOC: ER 02:52
DX: R10.9 Unspecified abdominal pain (principal); R11.0 Nausea; R30.0 Dysuria; I10 Essential (primary) hypertension; Z88.0 Allergy status to penicillin; Z88.6 Allergy status to analgesic agent; Z88.1 Allergy status to other antibiotic agents; Z88.8 Allergy status to other drugs, medicaments and biological substances; Z91.013 Allergy to seafood
CPT/HCPCS: 36415; 71045; 76770; 80053; 81003; 83690; 85025; 96372; 99285; J1885; Q0162

== ENCOUNTER 2021-08-13 17:57 | Emergency (ER) | payer MEDICAID ==
[~2021-08-13] VITALS: Ht 162.6 cm; Wt 44.0 kg
[~2021-08-13 17:57] MED LIST changes: +IBUP-2029 MT
[2021-08-13 18:05] VITALS: BP 159/86
== END 2021-08-13 21:04 | disposition left against medical advice (07) ==
LOC: ER 17:57
DX: Z53.21 Procedure and treatment not carried out due to patient leaving prior to being seen by health care provider (principal)
CPT/HCPCS: 82962; 93005

== ENCOUNTER 2022-02-17 10:52 | Emergency (ER) | payer MEDICAID, OTHER ==
[~2022-02-17] VITALS: Ht 162.6 cm; Wt 73.0 kg
[~2022-02-17 10:52] MED LIST changes: +ACET-3163 MT; -ACET650T37 MT; -LEVO500T89 MT; +LEVO500T90 MT; +POTA-205 PO; -POTA20TA82 PO
[2022-02-17] MEDS ORDERED: MORPHINE SULFATE 4 MG/ML CPJ (NOT FOR IM USE) IV STA (11:12)
[2022-02-17] MEDS ORDERED: ONDANSETRON HCL 4MG/2ML INJ IV STA (11:12)
[2022-02-17] MEDS ORDERED: SODIUM CHLORIDE 0.9% 1,000 ML IV ONE (11:15)
[2022-02-17 11:52] LABS: CHLORIDE 108 mEq/L (98-107)
[2022-02-17 11:55] LABS: BASOPHILS % 0.3 % (0.0-2.0); EOSINOPHILS % 0.2 % (0.0-5.0); HEMATOCRIT. 35.5 % (36.0-48.0); HEMOGLOBIN. 11.9 g/dL (12.0-16.0); MEAN CORPUSCULAR HEMOGLOBIN 29.8 pg (28.0-32.0); MEAN PLATELET VOLUME 8.6 fl (7.4-10.4); MONOCYTES % 6.8 % (2.0-8.0); NEUTROPHILS % 79.7 % (40.0-76.0); PLATELET 218 x1000/uL (130-400); RED BLOOD CELL COUNT 3.99 mill/uL (4.2-5.4); RED CELL DISTRIBUTION WIDTH 14.4 % (11.6-14.6)
[2022-02-17] MEDS ORDERED: IMOD MT (13:59)
[2022-02-17] MEDS ORDERED: KETOROLAC 15MG/ML VIAL IV ONE (14:00)
[2022-02-17] MEDS ORDERED: LOPERAMIDE 2MG/15ML UDC PO ONE (14:00)
[2022-02-17 15:04] VITALS: BP 118/71
== END 2022-02-17 15:27 | disposition home or self-care (01) ==
LOC: ER 11:06
DX: K52.9 Noninfective gastroenteritis and colitis, unspecified (principal); K57.90 Diverticulosis of intestine, part unspecified, without perforation or abscess without bleeding; I10 Essential (primary) hypertension; Z86.73 Personal history of transient ischemic attack (TIA), and cerebral infarction without residual deficits
CPT/HCPCS: 36415; 74176; 80053; 83690; 85025; 96361; 96374; 96375; 99284; J1885; J2270; J2405; J7030

== ENCOUNTER 2022-03-03 18:11 | Emergency (ER) | payer OTHER ==
[~2022-03-03] VITALS: Ht 157.5 cm; Wt 43.8 kg
[~2022-03-03 18:11] MED LIST changes: +IMOD MT
[2022-03-03] MEDS ORDERED: ACETAMINOPHEN 325MG TABLET PO STA (19:06)
[2022-03-03] MEDS ORDERED: METOCLOPRAMIDE HCL 10MG/2ML VIAL IV ONE (19:15)
[2022-03-03 19:33] LABS: CLARITY URINE CLEAR (CLEAR); COLOR URINE YELLOW (YELLOW); KETONES URINE NEGATIVE (NEGATIVE); LEUKOCYTE ESTERASE URINE NEGATIVE (NEGATIVE); NITRITE URINE NEGATIVE (NEGATIVE); OCCULT BLOOD URINE TRACE (NEGATIVE); PH URINE 6.5 (4.5-8.0); PROTEIN URINE NEGATIVE (NEGATIVE); SPECIFIC GRAVITY URINE 1.004 (1.005-1.030); UROBILINOGEN URINE 0.2 E.U./dL (0.2-1.0)
[2022-03-03 19:36] LABS: BASOPHILS % 0.6 % (0.0-2.0); EOSINOPHILS % 1.4 % (0.0-5.0); HEMOGLOBIN. 11.9 g/dL (12.0-16.0); MEAN CORPUSCULAR HEMOGLOBIN 29.9 pg (28.0-32.0); MEAN CORPUSCULAR VOLUME 89.9 fL (81.0-99.0); MONOCYTES % 5.5 % (2.0-8.0); NEUTROPHILS % 64.5 % (40.0-76.0); PLATELET 237 x1000/uL (130-400); RED CELL DISTRIBUTION WIDTH 14.5 % (11.6-14.6)
[2022-03-03 19:37] LABS: CHLORIDE 105 mEq/L (98-107)
[2022-03-03 19:40] LABS: PROTHROMBIN TIME 10.8 sec (9.6-11.0)
[2022-03-03 19:46] LABS: ETHANOL BLOOD < 10 mg/dL
[2022-03-03 20:00] LABS: *AMPHETAMINES SCREEN URINE NEGATIVE (NEGATIVE); *BARBITURATES SCREEN URINE NEGATIVE (NEGATIVE); *BENZODIAZEPINES SCREEN URINE NEGATIVE (NEGATIVE); *COCAINE SCREEN URINE NEGATIVE (NEGATIVE); CANNABINOID URINE SCREEN NEGATIVE (NEGATIVE); METHADONE URINE SCREEN NEGATIVE (NEGATIVE); OPIATES URINE SCREEN NEGATIVE (NEGATIVE); PHENCYCLIDINE URINE SCREEN NEGATIVE (NEGATIVE)
[2022-03-03] MEDS ORDERED: MORPHINE SULFATE 4 MG/ML CPJ (NOT FOR IM USE) IV ONE (20:45)
[2022-03-03] MEDS ORDERED: ONDANSETRON HCL 4MG/2ML INJ IV ONE (20:45)
[2022-03-03] MEDS ORDERED: ACET-2708 MT (23:36)
[2022-03-03] MEDS ORDERED: MORPHINE SULFATE 2 MG/ML CPJ (NOT FOR IM USE) IV ONE (23:45)
[2022-03-04] VITALS: BP 138/75
== END 2022-03-04 00:02 | disposition home or self-care (01) ==
LOC: ER 18:11
DX: R51.9 Headache, unspecified (principal); I10 Essential (primary) hypertension; M79.601 Pain in right arm; M79.604 Pain in right leg; Z86.79 Personal history of other diseases of the circulatory system; Z98.890 Other specified postprocedural states; Z86.73 Personal history of transient ischemic attack (TIA), and cerebral infarction without residual deficits; E78.00 Pure hypercholesterolemia, unspecified; Z79.899 Other long term (current) drug therapy; Z88.0 Allergy status to penicillin
CPT/HCPCS: 36415; 70450; 80053; 80305; 80320; 81003; 85025; 85610; 93005; 96374; 96375; 96376; 99285; J2270; J2405; J2765; G0480

== ENCOUNTER 2022-03-26 21:27 | Emergency (ER) | payer MEDICAID, OTHER ==
[~2022-03-26] VITALS: Ht 165.1 cm; Wt 54.0 kg
[~2022-03-26 21:27] MED LIST changes: +LEVO-65 MT; -LEVO500T90 MT
[2022-03-26] MEDS ORDERED: MORPHINE SULFATE 4 MG/ML CPJ (NOT FOR IM USE) IV STA (21:39)
[2022-03-26] MEDS ORDERED: ONDANSETRON HCL 4MG/2ML INJ IV STA (21:39)
[2022-03-26] MEDS ORDERED: SODIUM CHLORIDE 0.9% 1,000 ML IV ONE (21:45)
[2022-03-26 22:10] LABS: CLARITY URINE CLEAR (CLEAR); COLOR URINE YELLOW (YELLOW); KETONES URINE NEGATIVE (NEGATIVE); LEUKOCYTE ESTERASE URINE NEGATIVE (NEGATIVE); NITRITE URINE NEGATIVE (NEGATIVE); OCCULT BLOOD URINE 1+ (NEGATIVE); PROTEIN URINE NEGATIVE (NEGATIVE); SPECIFIC GRAVITY URINE 1.004 (1.005-1.030); UROBILINOGEN URINE 0.2 E.U./dL (0.2-1.0)
[2022-03-26 22:21] LABS: BASOPHILS % 0.6 % (0.0-2.0); EOSINOPHILS % 1.8 % (0.0-5.0); HEMATOCRIT. 36.5 % (36.0-48.0); HEMOGLOBIN. 12.3 g/dL (12.0-16.0); LYMPHOCYTES % 39.9 % (20.0-50.0); MEAN CORPUSCULAR HEMOGLOBIN 30.4 pg (28.0-32.0); MEAN CORPUSCULAR VOLUME 89.8 fL (81.0-99.0); MEAN PLATELET VOLUME 8.2 fl (7.4-10.4); MONOCYTES % 6.7 % (2.0-8.0); PLATELET 228 x1000/uL (130-400); RED BLOOD CELL COUNT 4.07 mill/uL (4.2-5.4); RED CELL DISTRIBUTION WIDTH 14.6 % (11.6-14.6)
[2022-03-26 22:22] LABS: CHLORIDE 106 mEq/L (98-107)
[2022-03-27] MEDS ORDERED: MORPHINE SULFATE 4 MG/ML CPJ (NOT FOR IM USE) IV STA (00:51)
[2022-03-27] MEDS ORDERED: ONDANSETRON HCL 4MG/2ML INJ IV STA (00:51)
[2022-03-27] MEDS ORDERED: ONDA4TAB50 MT (01:57)
[2022-03-27] MEDS ORDERED: FAMO40TA70 MT (01:57)
[2022-03-27 02:00] VITALS: BP 138/68
== END 2022-03-27 02:40 | disposition home or self-care (01) ==
LOC: ER 21:27
DX: R10.31 Right lower quadrant pain (principal); K62.89 Other specified diseases of anus and rectum; K92.1 Melena; I10 Essential (primary) hypertension; K57.90 Diverticulosis of intestine, part unspecified, without perforation or abscess without bleeding; Z87.442 Personal history of urinary calculi; Z87.19 Personal history of other diseases of the digestive system
CPT/HCPCS: 36415; 74176; 80053; 81003; 83605; 83690; 85025; 96374; 96375; 96376; 99284; J2270; J2405; J7030

== ENCOUNTER 2022-05-17 16:27 | Emergency (ER) | payer OTHER ==
[~2022-05-17] VITALS: Ht 165.1 cm; Wt 75.0 kg
[~2022-05-17 16:27] MED LIST changes: +FAMO40TA70 MT; -LEVO-65 MT; +LEVO500T90 MT; +ONDA4TAB50 MT
[2022-05-17] MEDS ORDERED: SODIUM CHLORIDE 0.9% 500 ML IV ONE (18:00)
[2022-05-17] MEDS ORDERED: ONDANSETRON HCL 4MG/2ML INJ IV STA (18:34)
[2022-05-17] MEDS ORDERED: MORPHINE SULFATE 4 MG/ML CPJ (NOT FOR IM USE) IV STA (18:34)
[2022-05-17 18:39] LABS: CLARITY URINE CLEAR (CLEAR); COLOR URINE YELLOW (YELLOW); KETONES URINE TRACE (NEGATIVE); LEUKOCYTE ESTERASE URINE 2+ (NEGATIVE); NITRITE URINE NEGATIVE (NEGATIVE); OCCULT BLOOD URINE 1+ (NEGATIVE); PROTEIN URINE NEGATIVE (NEGATIVE); SPECIFIC GRAVITY URINE 1.022 (1.005-1.030); UROBILINOGEN URINE 0.2 E.U./dL (0.2-1.0)
[2022-05-17] MEDS ORDERED: CYCLOBENZAPRINE 10MG TABLET PO SCH (18:45)
[2022-05-17 18:59] LABS: BASOPHILS % 0.8 % (0.0-2.0); EOSINOPHILS % 2.5 % (0.0-5.0); HEMATOCRIT. 37.2 % (36.0-48.0); HEMOGLOBIN. 12.6 g/dL (12.0-16.0); LYMPHOCYTES % 27.6 % (20.0-50.0); MEAN CORPUSCULAR HEMOGLOBIN 30.2 pg (28.0-32.0); MEAN CORPUSCULAR VOLUME 89.2 fL (81.0-99.0); MEAN PLATELET VOLUME 8.6 fl (7.4-10.4); NEUTROPHILS % 62.1 % (40.0-76.0); PLATELET 227 x1000/uL (130-400); RED BLOOD CELL COUNT 4.17 mill/uL (4.2-5.4); RED CELL DISTRIBUTION WIDTH 13.9 % (11.6-14.6)
[2022-05-17 19:08] LABS: CHLORIDE 105 mEq/L (98-107)
[2022-05-17 20:00] VITALS: BP 132/69
== END 2022-05-17 21:24 | disposition home or self-care (01) ==
LOC: ER 16:27 → CANBEDREQ 05-18 09:19
DX: S09.8XXA Other specified injuries of head, initial encounter (principal); I10 Essential (primary) hypertension; W01.198A Fall on same level from slipping, tripping and stumbling with subsequent striking against other object, initial encounter; Y93.89 Activity, other specified; Y92.89 Other specified places as the place of occurrence of the external cause
CPT/HCPCS: 36415; 70450; 80053; 81003; 82962; 85025; 96361; 96374; 96375; 99284; J2270; J2405; J7040

== ENCOUNTER 2022-06-08 11:51 | Emergency (ER) | payer OTHER ==
[~2022-06-08] VITALS: Ht 162.6 cm; Wt 60.0 kg
[~2022-06-08 11:51] MED LIST changes: +LEVO-65 MT; -LEVO500T90 MT
[2022-06-08] MEDS ORDERED: MORPHINE SULFATE 4 MG/ML CPJ (NOT FOR IM USE) IV STA (16:49)
[2022-06-08] MEDS ORDERED: SODIUM CHLORIDE 0.9% 1,000 ML IV ONE (17:00)
[2022-06-08 17:03] LABS: BASOPHILS % 0.7 % (0.0-2.0); EOSINOPHILS % 0.3 % (0.0-5.0); HEMATOCRIT. 36.6 % (36.0-48.0); HEMOGLOBIN. 12.4 g/dL (12.0-16.0); LYMPHOCYTES % 20.2 % (20.0-50.0); MEAN CORPUSCULAR HEMOGLOBIN 30.1 pg (28.0-32.0); MEAN CORPUSCULAR VOLUME 88.8 fL (81.0-99.0); MEAN PLATELET VOLUME 8.4 fl (7.4-10.4); MONOCYTES % 5.7 % (2.0-8.0); NEUTROPHILS % 73.1 % (40.0-76.0); PLATELET 229 x1000/uL (130-400); RED BLOOD CELL COUNT 4.12 mill/uL (4.2-5.4); RED CELL DISTRIBUTION WIDTH 13.7 % (11.6-14.6)
[2022-06-08 17:07] LABS: CHLORIDE 104 mEq/L (98-107)
[2022-06-08 18:48] LABS: CLARITY URINE CLEAR (CLEAR); COLOR URINE YELLOW (YELLOW); KETONES URINE NEGATIVE (NEGATIVE); LEUKOCYTE ESTERASE URINE NEGATIVE (NEGATIVE); NITRITE URINE NEGATIVE (NEGATIVE); OCCULT BLOOD URINE 1+ (NEGATIVE); PROTEIN URINE NEGATIVE (NEGATIVE); UROBILINOGEN URINE 0.2 E.U./dL (0.2-1.0)
[2022-06-08] MEDS ORDERED: SENN-257 MT (22:07)
[2022-06-08] MEDS ORDERED: BISA-145 PO (22:07)
[2022-06-08] MEDS: ACETAMINOPHEN 650MG/20.3ML UDC PO ONE ×2 (22:14→22:15)
[2022-06-08 22:40] VITALS: BP 128/58
== END 2022-06-08 22:51 | disposition home or self-care (01) ==
LOC: ER 12:50
DX: K59.00 Constipation, unspecified (principal); I10 Essential (primary) hypertension; E78.00 Pure hypercholesterolemia, unspecified; Z91.041 Radiographic dye allergy status; Z91.013 Allergy to seafood; Z88.0 Allergy status to penicillin; Z88.1 Allergy status to other antibiotic agents; Z88.8 Allergy status to other drugs, medicaments and biological substances; Z79.899 Other long term (current) drug therapy; Z86.73 Personal history of transient ischemic attack (TIA), and cerebral infarction without residual deficits
CPT/HCPCS: 36415; 74176; 80053; 81003; 83605; 83690; 85025; 96374; 99285; J2270; J7030

== ENCOUNTER 2022-08-04 01:57 | Emergency (ER) | payer MEDICAID, OTHER ==
[~2022-08-04] VITALS: Ht 160 cm; Wt 45.0 kg
[~2022-08-04 01:57] MED LIST changes: +BISA-145 PO; +SENN-257 MT
[2022-08-04 02:17] VITALS: BP 159/94
[2022-08-04] MEDS ORDERED: KETOROLAC 30MG/ML VIAL IV ONE (05:30)
[2022-08-04] MEDS ORDERED: METOCLOPRAMIDE HCL 10MG/2ML VIAL IV ONE (05:30)
[2022-08-04 06:15] LABS: CLARITY URINE CLEAR (CLEAR); COLOR URINE YELLOW (YELLOW); KETONES URINE NEGATIVE (NEGATIVE); LEUKOCYTE ESTERASE URINE NEGATIVE (NEGATIVE); NITRITE URINE NEGATIVE (NEGATIVE); OCCULT BLOOD URINE 2+ (NEGATIVE); PROTEIN URINE NEGATIVE (NEGATIVE); SPECIFIC GRAVITY URINE 1.017 (1.005-1.030); UROBILINOGEN URINE 0.2 E.U./dL (0.2-1.0)
[2022-08-04 06:18] LABS: BASOPHILS % 0.6 % (0.0-2.0); EOSINOPHILS % 1.7 % (0.0-5.0); HEMATOCRIT. 36.7 % (36.0-48.0); HEMOGLOBIN. 12.6 g/dL (12.0-16.0); LYMPHOCYTES % 25.7 % (20.0-50.0); MEAN CORPUSCULAR VOLUME 87.6 fL (81.0-99.0); MEAN PLATELET VOLUME 8.1 fl (7.4-10.4); MONOCYTES % 5.8 % (2.0-8.0); NEUTROPHILS % 66.2 % (40.0-76.0); PLATELET 225 x1000/uL (130-400); RED BLOOD CELL COUNT 4.19 mill/uL (4.2-5.4); RED CELL DISTRIBUTION WIDTH 14.2 % (11.6-14.6)
[2022-08-04 06:20] LABS: CHLORIDE 106 mEq/L (98-107)
[2022-08-04 06:23] LABS: PROTHROMBIN TIME 10.4 sec (9.6-11.0)
[2022-08-04] MEDS ORDERED: ACETAMINOPHEN 325MG TABLET PO ONE (06:30)
[2022-08-04] MEDS ORDERED: TOPUD PO (07:14)
== END 2022-08-04 07:46 | disposition home or self-care (01) ==
LOC: ER 01:57
DX: R10.84 Generalized abdominal pain (principal); R51.9 Headache, unspecified; M79.18 Myalgia, other site; Z91.81 History of falling
CPT/HCPCS: 36415; 70450; 74176; 80053; 81003; 83690; 85025; 85610; 96374; 99284; J1885

== ENCOUNTER 2022-09-02 04:57 | Emergency (ER) | payer MEDICAID, OTHER ==
[~2022-09-02] VITALS: Ht 157.5 cm; Wt 59.0 kg
[2022-09-02 04:59] VITALS: BP 172/94
[2022-09-02 06:00] LABS: BASOPHILS % 0.6 % (0.0-2.0); EOSINOPHILS % 1.3 % (0.0-5.0); HEMATOCRIT. 37.2 % (36.0-48.0); HEMOGLOBIN. 12.6 g/dL (12.0-16.0); LYMPHOCYTES % 18.4 % (20.0-50.0); MEAN CORPUSCULAR HEMOGLOBIN 29.6 pg (28.0-32.0); MEAN CORPUSCULAR VOLUME 87.8 fL (81.0-99.0); MEAN PLATELET VOLUME 8.2 fl (7.4-10.4); NEUTROPHILS % 73.7 % (40.0-76.0); PLATELET 212 x1000/uL (130-400); RED BLOOD CELL COUNT 4.24 mill/uL (4.2-5.4); RED CELL DISTRIBUTION WIDTH 14.1 % (11.6-14.6)
[2022-09-02 06:04] LABS: CHLORIDE 101 mEq/L (98-107)
[2022-09-02 06:07] LABS: PROTHROMBIN TIME 10.7 sec (9.6-11.0)
[2022-09-02] MEDS ORDERED: TOPUD PO (08:31)
== END 2022-09-02 08:57 | disposition home or self-care (01) ==
LOC: ER 04:57
DX: R10.11 Right upper quadrant pain (principal)
CPT/HCPCS: 36415; 74176; 80053; 85025; 99284

== ENCOUNTER 2023-01-08 13:54 | Emergency (ER) | payer MEDICAID, OTHER ==
[~2023-01-08] VITALS: Ht 160 cm; Wt 60.0 kg
[2023-01-08] MEDS ORDERED: METHYLPREDNISOLONE SOD SUCC 125 MG/2 ML VIAL IV ONE (14:15)
[2023-01-08] MEDS ORDERED: DIPHENHYDRAMINE 50MG/ML VIAL IV ONE (14:15)
[2023-01-08] MEDS ORDERED: KETOROLAC 15MG/ML VIAL IV ONE (15:15)
[2023-01-08 15:28] VITALS: BP 147/73
[2023-01-08] MEDS ORDERED: P50 MT (16:18)
[2023-01-08] MEDS ORDERED: DIPH-1207 MT (16:19)
[2023-01-08] MEDS ORDERED: EPIN0.3P3 IM (16:19)
== END 2023-01-08 16:26 | disposition home or self-care (01) ==
LOC: ER 13:54
DX: T78.40XA Allergy, unspecified, initial encounter (principal); X58.XXXA Exposure to other specified factors, initial encounter; E78.00 Pure hypercholesterolemia, unspecified; I10 Essential (primary) hypertension; Z86.73 Personal history of transient ischemic attack (TIA), and cerebral infarction without residual deficits; Z79.899 Other long term (current) drug therapy
CPT/HCPCS: 96374; 96375; 99284; J1200; J1885; J2930

== ENCOUNTER 2023-05-05 02:28 | Emergency (ER) | payer OTHER ==
[~2023-05-05] VITALS: Ht 157.5 cm; Wt 51.0 kg
[~2023-05-05 02:28] MED LIST changes: +DIPH-1207 MT; +EPIN0.3P3 IM; +P50 MT
[2023-05-05 02:52] VITALS: O2SAT 96
[2023-05-05 04:09] LABS: BASOPHILS % 0.5 % (0.0-2.0); HEMATOCRIT. 34.9 % (36.0-48.0); HEMOGLOBIN. 11.5 g/dL (12.0-16.0); LYMPHOCYTES % 14.7 % (20.0-50.0); MEAN CORPUSCULAR HEMOGLOBIN 28.5 pg (28.0-32.0); MEAN CORPUSCULAR HGB CONC 33.1 g/dL (31.0-37.0); MEAN CORPUSCULAR VOLUME 86.3 fL (81.0-99.0); MEAN PLATELET VOLUME 8.2 fl (7.4-10.4); NEUTROPHILS % 78.8 % (40.0-76.0); PLATELET 260 x1000/uL (130-400); RED BLOOD CELL COUNT 4.04 mill/uL (4.2-5.4); RED CELL DISTRIBUTION WIDTH 14.4 % (11.6-14.6); WHITE BLOOD COUNT 8.1 x1000/uL (4.5-11.0)
[2023-05-05] MEDS ORDERED: CEFTRIAXONE 1GM PREMIX 50 ML IV ONE (04:15)
[2023-05-05] MEDS ORDERED: MORPHINE SULFATE 4 MG/ML CPJ (NOT FOR IM USE) IV ONE ×2 (04:15→08:15)
[2023-05-05 04:22] LABS: CHLORIDE 108 mEq/L (98-107); INDEX HEMOLYSI 1 (1-3); INDEX ICTERIC 1 (1-4); INDEX LIPEMIC 1 (1-3); POTASSIUM 3.2 mEq/L (3.5-5.1); SODIUM 141 mEq/L (136-145)
[2023-05-05 04:31] LABS: ALANINE AMINOTRANSFERASE 20 IU/L (13-61); ALBUMIN 3.9 g/dL (3.4-5.0); ASPARTATE AMINOTRANSFERASE 17 IU/L (15-37); BILIRUBIN TOTAL 0.3 mg/dL (0.1-1.0); CALCIUM 8.6 mg/dL (8.5-10.1); CARBON DIOXIDE 30 mEq/L (21-32); CREATININE 0.7 mg/dL (0.6-1.3); GLUCOSE 120 mg/dL (70-105); PROTEIN TOTAL 7.8 g/dL (6.0-8.3); TROPONIN I HIGH SENSITIVITY 9 ng/L (<54); UREA NITROGEN BLOOD 16 mg/dL (7-21)
[2023-05-05 05:39] LABS: CLARITY URINE CLEAR (CLEAR); COLOR URINE YELLOW (YELLOW); GLUCOSE URINE NEGATIVE (NEGATIVE); KETONES URINE NEGATIVE (NEGATIVE); LEUKOCYTE ESTERASE URINE TRACE (NEGATIVE); NITRITE URINE NEGATIVE (NEGATIVE); OCCULT BLOOD URINE 1+ (NEGATIVE); PH URINE 7.5 (4.5-8.0); PROTEIN URINE NEGATIVE (NEGATIVE); SPECIFIC GRAVITY URINE 1.008 (1.005-1.030); UROBILINOGEN URINE 0.2 E.U./dL (0.2-1.0)
[2023-05-05 05:44] LABS: BACTERIA URINE NONE SEEN; SQUAMOUS EPITHELIAL CELL URINE NONE SEEN /lpf (RARE/1+); WBC URINE 0-2 /hpf (0-2); YEAST URINE NONE SEEN
[2023-05-05] MEDS ORDERED: NITR-87 MT (06:53)
[2023-05-05 07:07] VITALS: BP 124/65; PULSE 59; RESP 16; TEMP 98.4
[2023-05-05 07:34] LABS: TROPONIN I HIGH SENSITIVITY 10 ng/L (<54)
[2023-05-05] MEDS ORDERED: ONDANSETRON HCL 4MG/2ML INJ IV ONE (08:15)
[2023-05-05] MEDS ORDERED: ONDANSETRON HCL 4MG/2ML INJ IV SCH (09:50)
[2023-05-05] MEDS ORDERED: MORPHINE SULFATE 4 MG/ML CPJ (NOT FOR IM USE) IV SCH (09:50)
== END 2023-05-05 17:06 | disposition short-term general hospital (02) ==
LOC: ER 02:28
DX: R10.9 Unspecified abdominal pain (principal); Z91.041 Radiographic dye allergy status; Z91.013 Allergy to seafood; Z88.1 Allergy status to other antibiotic agents; Z88.8 Allergy status to other drugs, medicaments and biological substances; Z88.9 Allergy status to unspecified drugs, medicaments and biological substances; Z79.899 Other long term (current) drug therapy; Z91.010 Allergy to peanuts
CPT/HCPCS: 80053; 81003; 85025; 84484; 36415; 71045; 74176; 93005; 96365; 96366; 96375; 96376; 99285; J0696; J2405; J2270; Z7610

== ENCOUNTER 2023-08-13 04:09 | Emergency (ER) | payer MEDICAID, OTHER ==
[~2023-08-13] VITALS: Ht 157.5 cm; Wt 53.5 kg
[~2023-08-13 04:09] MED LIST changes: +NITR-87 MT
[2023-08-13 04:33] VITALS: O2SAT 97
[2023-08-13] MEDS ORDERED: MAGNESIUM/ALUMINUM HYDROXIDE/SIMETHICONE 30ML UDC PO STA (06:25)
[2023-08-13] MEDS ORDERED: MAGNESIUM/ALUMINUM HYDROXIDE/SIMETHICONE 30ML UDC PO NR (08:30)
[2023-08-13 09:11] LABS: BASOPHILS % 0.7 % (0.0-2.0); EOSINOPHILS % 1.5 % (0.0-5.0); HEMATOCRIT. 35.8 % (36.0-48.0); HEMOGLOBIN. 11.9 g/dL (12.0-16.0); LYMPHOCYTES % 34.1 % (20.0-50.0); MEAN CORPUSCULAR HEMOGLOBIN 28.5 pg (28.0-32.0); MEAN CORPUSCULAR HGB CONC 33.2 g/dL (31.0-37.0); MEAN CORPUSCULAR VOLUME 85.7 fL (81.0-99.0); MEAN PLATELET VOLUME 8.3 fl (7.4-10.4); MONOCYTES % 7.8 % (2.0-8.0); NEUTROPHILS % 55.9 % (40.0-76.0); PLATELET 304 x1000/uL (130-400); RED BLOOD CELL COUNT 4.18 mill/uL (4.2-5.4); RED CELL DISTRIBUTION WIDTH 14.2 % (11.6-14.6); WHITE BLOOD COUNT 4.8 x1000/uL (4.5-11.0)
[2023-08-13 09:23] LABS: SODIUM 140 mEq/L (136-145)
[2023-08-13 09:24] LABS: ALANINE AMINOTRANSFERASE 14 IU/L (10-49); ALBUMIN 4.7 g/dL (3.2-4.8); ASPARTATE AMINOTRANSFERASE 19 IU/L (<34); BILIRUBIN TOTAL 0.3 mg/dL (0.1-1.0); CALCIUM 9.8 mg/dL (8.7-10.4); CARBON DIOXIDE 27 mEq/L (21-32); CHLORIDE 106 mEq/L (98-107); CREATININE 0.6 mg/dL (0.6-1.0); GLUCOSE 120 mg/dL (70-105); POTASSIUM 3.4 mEq/L (3.5-5.1); UREA NITROGEN BLOOD 9 mg/dL (9-23)
[2023-08-13 09:34] LABS: CLARITY URINE CLEAR (CLEAR); COLOR URINE YELLOW (YELLOW); GLUCOSE URINE NEGATIVE (NEGATIVE); KETONES URINE TRACE (NEGATIVE); LEUKOCYTE ESTERASE URINE 1+ (NEGATIVE); NITRITE URINE NEGATIVE (NEGATIVE); OCCULT BLOOD URINE 2+ (NEGATIVE); PROTEIN URINE 1+ (NEGATIVE)
[2023-08-13 11:11] LABS: MUCUS URINE 2+ /lpf (< = 2+)
[2023-08-13 11:14] LABS: BACTERIA URINE TRACE; SQUAMOUS EPITHELIAL CELL URINE 1+ /lpf (RARE/1+)
[2023-08-13] MEDS ORDERED: TOPUD MT (12:04)
[2023-08-13] MEDS ORDERED: NITR-87 MT (12:04)
[2023-08-13] MEDS ORDERED: KETOROLAC 60MG/2ML VIAL IM ONE (13:15)
[2023-08-13 14:21] VITALS: BP 128/76; PULSE 78; RESP 16; TEMP 98.2
== END 2023-08-13 14:23 | disposition home or self-care (01) ==
LOC: ER 04:09
DX: R10.9 Unspecified abdominal pain (principal); S60.211A Contusion of right wrist, initial encounter; M25.561 Pain in right knee; I10 Essential (primary) hypertension; Z88.0 Allergy status to penicillin; Z91.041 Radiographic dye allergy status; Z91.013 Allergy to seafood; Z88.1 Allergy status to other antibiotic agents; Z88.9 Allergy status to unspecified drugs, medicaments and biological substances; Z88.8 Allergy status to other drugs, medicaments and biological substances; Z79.899 Other long term (current) drug therapy; Z91.010 Allergy to peanuts; Z98.890 Other specified postprocedural states; W18.30XA Fall on same level, unspecified, initial encounter; Y93.89 Activity, other specified; Y92.89 Other specified places as the place of occurrence of the external cause; Y99.8 Other external cause status
CPT/HCPCS: 99284; 80053; 81003; 83690; 85025; 36415; 73100; 73560; 73600; 96372; J1885